=== PATIENT | male | born 1970 | race Asian ===

== ENCOUNTER → 2020-05-08 | Emergency (ER) | payer OTHER ==
[~2020-05-08] VITALS: Ht 170.2 cm; Wt 77.1 kg
[2020-05-08 20:00] VITALS: BP 142/65
== END | disposition home or self-care (01) ==
LOC: ER 18:04
DX: U07.1 COVID-19 (principal)
CPT/HCPCS: 71045; 87635

== ENCOUNTER 2020-05-14 03:46 | Inpatient (IN) | payer OTHER ==
[~2020-05-14] VITALS: Ht 165.1 cm; Wt 72.4 kg
[2020-05-14 08:49] LABS: Basophils # (auto) 0 10 ^3/uL (0-0.2); Basophils % (auto) 0.3 % (0.0-2.0); Eosinophils # (auto) 0 10 ^3/uL (0-0.8); Hematocrit 53.9 % (41.0-53.0); Hemoglobin 17.6 g/dL (13.5-17.5); Lymphocytes # (auto) 1.3 10 ^3/uL (0.4-5.4); Lymphocytes % (auto) 17.9 % (10.0-50.0); Mean Corpuscular Hemoglobin 30.2 pg (28.0-32.0); Mean Corpuscular Hgb Conc. 32.7 g/dL (32.0-36.0); Mean Corpuscular Volume 92.3 fL (80.0-100.0); Monocytes # (auto) 0.4 10 ^3/uL (0-1.3); Monocytes % (auto) 5.5 % (0.0-12.0); Neutrophils # (auto) 5.4 10 ^3/uL (1.6-8.6); Neutrophils % (auto) 76.3 % (37.0-80.0); Nucleated Red Blood Cells % 0.1 %; Platelet Count (auto) 128 10^3/uL (140-450); Red Blood Cells 5.84 10^6/uL (4.5-5.90); Red Cell Distribution Width 13.7 % (11.8-14.3); White Blood Cell 7.1 10^3/uL (4.4-10.8)
[2020-05-14 09:22] LABS: Albumin 3.6 g/dL (3.4-5.0); Calcium 8.5 mg/dL (8.5-10.1); Potassium 3.8 mmol/L (3.5-5.1)
[2020-05-14 09:27] LABS: BUN/Creatinine Ratio 16.1; Bilirubin, Total 0.5 mg/dL (0.2-1.0); Total Protein 8.2 g/dL (6.4-8.2)
[2020-05-14] MEDS ORDERED: SODIUM CHLORIDE 0.9% 1,000 ML IV ONE (09:59)
[2020-05-14] MEDS ORDERED: cefTRIAXone 1GM/50ML D5W 50 ML IV ONE (10:00)
[2020-05-14] MEDS ORDERED: PROMETHAZINE W/CODEINE 5 ML ORAL SYRUP PO ONE (10:00)
[2020-05-14] MEDS ORDERED: DOXYCYCLINE 100MG/250ML 250 ML IV ONE (10:00)
[2020-05-14] MEDS ORDERED: DexAMETHasone SOD PHOS 4 MG/1ML SDV INJ IV ONE (10:00)
[2020-05-14] MEDS ORDERED: ZINC SULFATE 220mg CAP or TAB PO ONE (10:00)
[2020-05-14] MEDS ORDERED: ASCORBIC ACID 500 MG TAB PO ONE (10:00)
[2020-05-14] MEDS ORDERED: hydrOXYchloroQUINE SULFATE 200 MG TAB PO ONE (10:00)
[2020-05-14] MEDS ORDERED: ACETAMINOPHEN 650 mg PER 20 mL UD PO ONE (11:15)
[2020-05-14] MEDS ORDERED: IBUPROFEN 800 MG TAB PO ONE (12:15)
[2020-05-14] MEDS ORDERED: NITROGLYCERIN 0.4 MG SL TAB SL PRN (13:30)
[2020-05-14] MEDS ORDERED: MORPHINE SULF INJ 2 MG/ML SYRINGE 1ML IV PRN (13:30)
[2020-05-14] MEDS ORDERED: ACETAMINOPHEN 500 MG TAB PO PRN ×2 (13:30)
[2020-05-14] MEDS ORDERED: traMADol HCL 50 MG TAB PO PRN (13:30)
[2020-05-14] MEDS ORDERED: PROMETHAZINE HCL 25 MG/ML 1ML IV PRN (13:30)
[2020-05-14] MEDS: SODIUM CHLORIDE 0.9% 1,000 ML IV SCH ×2 (13:46→17:11)
[2020-05-14] MEDS: CLINDAMYCIN 600MG IV 50 ML IV SCH ×2 (14:26→22:44)
[2020-05-14 15:27] VITALS: BP 111/72
[2020-05-14 17:26] VITALS: BP 107/66
[2020-05-14] MEDS ORDERED: BUDESONIDE (INHALATION) 0.5 MG/2 ML NEB NEB ONE (17:30)
[2020-05-14 20:00] VITALS: BP 110/72
--- NOTE | 2020-05-14 20:00 | NUR ---
Opening Shift Note Assumed care of patient, awake and alert. A&Ox4. Patient lying in bed. No S/S of distress/SOB or pain. Safety measures maintained by keeping the bed locked in lowest position, 2 side rails up, personal items and call light within reach. Instructed on POC and to call for assist PRN, will continue to monitor for changes Q1hr and PRN.
[2020-05-14 22:00] VITALS: BP 110/72
[2020-05-14] MEDS ORDERED: BUDESONIDE (INHALATION) 0.5 MG/2 ML NEB NEB SCH (22:00)
[2020-05-14] MEDS: ENOXAPARIN SOD 80 MG/0.8ML SYRINGE SC SCH (22:44)
[2020-05-14] MEDS: ALBUTEROL SULF HFA 90MCG INH 200DOSE IN SCH (23:00)
--- NOTE | 2020-05-14 23:00 | NUR ---
RT AT BEDSIDE TO GIVE VENTOLIN HFA INHALER MEDICATION .
[2020-05-14] MEDS: DexAMETHasone SOD PHOS 10MG/1ML VIAL INJ IV SCH (23:17)
[2020-05-15 04:30] VITALS: BP 111/72
[2020-05-15 05:00] VITALS: BP 102/64
[2020-05-15] MEDS: CLINDAMYCIN 600MG IV 50 ML IV SCH ×2 (05:48→14:00)
[2020-05-15] MEDS: ALBUTEROL SULF HFA 90MCG INH 200DOSE IN SCH ×3 (06:05→22:00)
--- NOTE | 2020-05-15 07:46 | NUR ---
Opening Shift Note Assumed care of patient, awake and alert. A&Ox4. Patient on continuous pulse ox, patient on 2L via NC PRN, SaO2 at 98%. No signs of pain or distress. Safety measures maintained by keeping the bed locked in lowest position, 2 side rails up, personal items and call light within reach. Instructed on POC and to call for assist PRN, will continue to monitor for changes Q1hr and PRN. Addendum: 05/15/20 at 0752 by MARIANA RHODES RN PT ON ROOM AIR
[2020-05-15 08:05] LABS: Basophils # (auto) 0 10 ^3/uL (0-0.2); Basophils % (auto) 0.3 % (0.0-2.0); Eosinophils # (auto) 0 10 ^3/uL (0-0.8); Hematocrit 52.1 % (41.0-53.0); Hemoglobin 17.5 g/dL (13.5-17.5); Lymphocytes # (auto) 0.9 10 ^3/uL (0.4-5.4); Mean Corpuscular Hemoglobin 30.5 pg (28.0-32.0); Mean Corpuscular Hgb Conc. 33.6 g/dL (32.0-36.0); Mean Corpuscular Volume 90.6 fL (80.0-100.0); Monocytes # (auto) 0.4 10 ^3/uL (0-1.3); Monocytes % (auto) 5.9 % (0.0-12.0); Neutrophils # (auto) 4.9 10 ^3/uL (1.6-8.6); Neutrophils % (auto) 79.8 % (37.0-80.0); Nucleated Red Blood Cells % 0.1 %; Platelet Count (auto) 134 10^3/uL (140-450); Red Blood Cells 5.75 10^6/uL (4.5-5.90); Red Cell Distribution Width 13.7 % (11.8-14.3); White Blood Cell 6.2 10^3/uL (4.4-10.8)
[2020-05-15 08:11] LABS: Albumin 3.2 g/dL (3.4-5.0); Calcium 8.6 mg/dL (8.5-10.1); Potassium 4.3 mmol/L (3.5-5.1)
[2020-05-15 08:13] LABS: Bilirubin, Total 0.5 mg/dL (0.2-1.0); Total Protein 7.9 g/dL (6.4-8.2)
[2020-05-15 09:00] VITALS: BP 119/79
[2020-05-15] MEDS: DexAMETHasone SOD PHOS 10MG/1ML VIAL INJ IV SCH ×2 (09:27→22:38)
[2020-05-15] MEDS: ASCORBIC ACID 1,000 MG TAB PO SCH (09:28)
[2020-05-15] MEDS: ZINC SULFATE 220mg CAP or TAB PO SCH (09:28)
[2020-05-15] MEDS: ENOXAPARIN SOD 80 MG/0.8ML SYRINGE SC SCH ×2 (09:28→22:39)
[2020-05-15] MEDS: CHOLECALCIFEROL (VITD3) 1,000UNIT=25mCg TAB PO SCH (09:28)
[2020-05-15] MEDS ORDERED: levoFLOXacin 500MG 100 ML IV SCH (10:00)
[2020-05-15] MEDS ORDERED: POLYETHYLENE GLYCOL 17 GM PWDR PO ONE (10:45)
--- NOTE | 2020-05-15 11:21 | NUR ---
1120 supercharger repair supervisor called to insert iv attempt x2 no success
--- NOTE | 2020-05-15 12:05 | NUR ---
PER MIDLINE NURSE THERE IS NO ONE TO INSERT MIDLINES IN COVID UNIT
[2020-05-15] MEDS: PROMETHAZINE W/CODEINE 5 ML ORAL SYRUP PO PRN ×2 (12:21→22:50)
[2020-05-15 13:00] VITALS: BP 120/76
--- NOTE | 2020-05-15 13:07 | NUR ---
IV insertion IV access obtained, via clean sterile technique by inserting 20 gauge catheter at after attempt(s). IV secured properly. No trauma to site. Patient tolerated well. NOTE:
[2020-05-15 17:00] VITALS: BP 122/74
[2020-05-15] MEDS ORDERED: FUROSEMIDE 40 MG/4 ML VIAL IV ONE (17:15)
--- NOTE | 2020-05-15 18:00 | NUR ---
MS ZAVALETA ROUNDED ON PT INFORMED MD THAT PT HAS BEEN OFF 02 ALL DAY AND WHEN SLEEPING OFF O2 HE SAT 95-99% WHEN AWAKE 85% PER MD PT CAN MOST LIKELY DISCHARGE TOMORROW IF HE CAN STAY ABOVE 90% ROOM AIR FOR 6 HOURS
--- NOTE | 2020-05-15 19:25 | NUR ---
opening note pt is A&Ox4. respirations even and nonlabored on 2Lnc. pt has a nonproductive cough when trying to speak. pt denies pain at this time. No fever noted at this time. no s/s of distress. will continue to monitor.
--- NOTE | 2020-05-15 20:34 | NUR ---
MIDLINE ATTEMPTED TO START MIDLINE, PT REFUSING AT THIS TIME. STATES HE HAS [address] AT THIS TIME. PRIMARY RN NOTIFIED
[2020-05-15 22:00] VITALS: BP 114/71
[2020-05-15] MEDS ORDERED: BUDESONIDE (INHALATION) 0.5 MG/2 ML NEB NEB SCH (22:00)
[2020-05-15] MEDS ORDERED: PULMICORT 180 MCG FLEXHALER INH SCH (22:00)
[2020-05-15] MEDS: hydrOXYchloroQUINE SULFATE 200 MG TAB PO SCH (22:39)
[2020-05-15] MEDS: DOXYCYCLINE 100 MG TAB/CAP PO SCH (22:39)
[2020-05-16 05:00] VITALS: BP 111/73
[2020-05-16 06:55] LABS: Basophils # (auto) 0 10 ^3/uL (0-0.2); Basophils % (auto) 0.1 % (0.0-2.0); Eosinophils # (auto) 0 10 ^3/uL (0-0.8); Hematocrit 51.2 % (41.0-53.0); Hemoglobin 17.2 g/dL (13.5-17.5); Lymphocytes # (auto) 0.9 10 ^3/uL (0.4-5.4); Lymphocytes % (auto) 8.6 % (10.0-50.0); Mean Corpuscular Hemoglobin 30.3 pg (28.0-32.0); Mean Corpuscular Hgb Conc. 33.5 g/dL (32.0-36.0); Mean Corpuscular Volume 90.4 fL (80.0-100.0); Monocytes # (auto) 0.8 10 ^3/uL (0-1.3); Monocytes % (auto) 7.3 % (0.0-12.0); Neutrophils # (auto) 8.7 10 ^3/uL (1.6-8.6); Nucleated Red Blood Cells % 0.2 %; Platelet Count (auto) 167 10^3/uL (140-450); Red Blood Cells 5.66 10^6/uL (4.5-5.90); Red Cell Distribution Width 13.5 % (11.8-14.3); White Blood Cell 10.4 10^3/uL (4.4-10.8)
[2020-05-16 07:13] LABS: Calcium 8.8 mg/dL (8.5-10.1); Magnesium 2.6 mg/dL (1.6-2.6); Potassium 4.2 mmol/L (3.5-5.1)
--- NOTE | 2020-05-16 07:21 | NUR ---
closing note pt is resting in semi fowlers with HOB elevated at 30 degrees. Respirations are even and nonlabored on 2Lnc. No s/s of distress or discomfort at this time. bed is in low locked position, call light within reach. endorsed care to day shift ADELA Brennan.
[2020-05-16 07:22] LABS: Bilirubin, Total 0.5 mg/dL (0.2-1.0); CRP High Sensitivity 2.59 mg/dL (< 0.3); Total Protein 7.7 g/dL (6.4-8.2)
--- NOTE | 2020-05-16 07:30 | NUR ---
Opening Shift Note Assumed care of patient, awake and alert. No S/S of distress/SOB or pain on room air. Instructed on POC and to call for assist PRN, will continue to monitor for changes Q1hr and PRN. Bed in low and locked position, rails up x2, no-slip socks on.
[2020-05-16] MEDS: ALBUTEROL SULF HFA 90MCG INH 200DOSE IN SCH ×3 (08:00→21:48)
[2020-05-16 08:35] LABS: Urine Bacteria FEW /hpf (None Seen); Urine Blood Negative /uL (Negative); Urine Specific Gravity 1.024 (1.001-1.035); Urine WBC <1 /hpf (0 - 3)
[2020-05-16 09:00] VITALS: BP 97/67
[2020-05-16] MEDS: DexAMETHasone SOD PHOS 10MG/1ML VIAL INJ IV SCH (09:43)
[2020-05-16] MEDS: ASCORBIC ACID 1,000 MG TAB PO SCH (09:44)
[2020-05-16] MEDS: FUROSEMIDE 40 MG/4 ML VIAL IV SCH ×2 (09:44→09:53)
[2020-05-16] MEDS: DOXYCYCLINE 100 MG TAB/CAP PO SCH ×2 (09:44→21:48)
[2020-05-16] MEDS: ENOXAPARIN SOD 80 MG/0.8ML SYRINGE SC SCH ×2 (09:44→21:48)
[2020-05-16] MEDS: CHOLECALCIFEROL (VITD3) 1,000UNIT=25mCg TAB PO SCH (09:44)
[2020-05-16] MEDS: ZINC SULFATE 220mg CAP or TAB PO SCH (09:44)
[2020-05-16] MEDS: hydrOXYchloroQUINE SULFATE 200 MG TAB PO SCH (09:45)
--- NOTE | 2020-05-16 09:50 | NUR ---
URINE SPECIMEN COLLECTED
[2020-05-16] MEDS ORDERED: BUDESONIDE (INHALATION) 180 MCG IH IN SCH (10:00)
--- NOTE | 2020-05-16 11:12 | NUR ---
DR MEREDITH AT BEDSIDE
[2020-05-16 13:00] VITALS: BP 107/72
[2020-05-16 13:55] VITALS: BP 107/72
--- NOTE | 2020-05-16 14:54 | NUR ---
PRESCRIPTIONS FAXED TO [facility] PATIENT REQUESTING TO GET THEM FILLED HERE, ACKNOWLEDGES POSSIBILITY OF HIGH COPAY AND AGREES.
--- NOTE | 2020-05-16 17:00 | NUR ---
PRESCRIPTIONS DELIVERED TO BEDSIDE
--- NOTE | 2020-05-16 17:22 | NUR ---
05/16/2020 1420 Contacted [facility] at [phone] and requested continued authorization for hospital stay. Spoke with Radha GAONA and informed that the patient will be discharged home today. Per Radha entire stay is authorized, with auth [id number]
--- NOTE | 2020-05-16 17:23 | NUR ---
Called [facility] and spoke with Bipin requesting for authorization for home o2 at 2l by n/c continous to keep sat greater than 94%, stated to him that he needs to have o2 at home and to be brought to the hospital, he spoke with Radha GAONA who stated she will work on it, gave her the room number 247b and the phone to the floor [phone], ext [phone]
--- NOTE | 2020-05-16 18:34 | NUR ---
DISCHARGE HOLD AWAITING HOME O2 TO BE DELIVERED.
--- NOTE | 2020-05-16 18:40 | NUR ---
OK FOR NO IV SPOKE TO DR MEREDITH SINCE DISCHARGE IS HELD FOR TONIGHT AND PATIENT HAS IV MEDS DUE THIS EVENING, PER MD CHANGE TO ORAL ADMINISTRATION AND NO IV IS OK.
[2020-05-16] MEDS: PROMETHAZINE W/CODEINE 5 ML ORAL SYRUP PO PRN (20:58)
[2020-05-16] MEDS: DexAMETHasone 4 MG TAB PO SCH (21:48)
[2020-05-16] MEDS: BUDESONIDE (INHALATION) 180 MCG IH IN SCH (21:48)
[2020-05-16 22:00] VITALS: BP 108/68
[2020-05-16] MEDS ORDERED: DexAMETHasone SOD PHOS 10MG/1ML VIAL INJ PO SCH (22:00)
[2020-05-17 05:00] VITALS: BP 112/72
[2020-05-17] MEDS: ALBUTEROL SULF HFA 90MCG INH 200DOSE IN SCH ×3 (06:06→23:43)
[2020-05-17 08:00] VITALS: BP 112/69
--- NOTE | 2020-05-17 09:05 | NUR ---
Called [facility] [phone] Spoke with business planning analyst Vanda who stated the ed case manager were not in yet, per Vanda they received the request and the order had been placed for the o2 but there was no eta, stated she will let the field nurse case manager know when she arrives
[2020-05-17] MEDS: hydrOXYchloroQUINE SULFATE 200 MG TAB PO SCH (09:34)
[2020-05-17] MEDS: ZINC SULFATE 220mg CAP or TAB PO SCH (09:35)
[2020-05-17] MEDS: DOXYCYCLINE 100 MG TAB/CAP PO SCH ×2 (09:35→21:10)
[2020-05-17] MEDS: ASCORBIC ACID 1,000 MG TAB PO SCH (09:35)
[2020-05-17] MEDS: DexAMETHasone 4 MG TAB PO SCH (09:36)
[2020-05-17] MEDS: CHOLECALCIFEROL (VITD3) 1,000UNIT=25mCg TAB PO SCH (09:36)
[2020-05-17] MEDS: ENOXAPARIN SOD 80 MG/0.8ML SYRINGE SC SCH ×2 (09:37→21:10)
[2020-05-17] MEDS: FUROSEMIDE 40 MG TAB PO SCH (09:38)
[2020-05-17] MEDS: BUDESONIDE (INHALATION) 180 MCG IH IN SCH ×2 (10:00→22:00)
--- NOTE | 2020-05-17 11:50 | NUR ---
Called [facility] [phone] spoke with data analyst report writer Que and stated they have no ETA on the O2, but he is going to talk with the supervisor fur dressing Cate and see why the O2 has not been delivered, gave him my number so he could call me back [phone]
[2020-05-17 12:00] VITALS: BP 107/66
--- NOTE | 2020-05-17 12:08 | NUR ---
DOCTOR MEREDITH AT BEDSIDE DISCUSSING POC WITH PATIENT. PATIENT VERBALIZES UNDERSTANDING AND AGREES WITH POC. DOCTOR MEREDITH INFORMED PATIENT CURRENTLY ON 6L OXYMIZER SATURATION 95%.
--- NOTE | 2020-05-17 14:47 | NUR ---
Nutrition Assessment Notes Please refer to link for full assessment notes. Est Energy needs: 8184-1042 kcals (23-25 kcal/kgBW) Est Protein needs: 58-72 gms/day (0.8-1.0 gm/kgBW) Will continue to monitor and reassess prn. Addendum: 05/17/20 at [address] Amended: Links added.
--- NOTE | 2020-05-17 15:05 | NUR ---
Spoke with Dr Morrison and stated the discharge is being held, faxing information to [facility] [phone] for authorization for in patient stay and sending post stabilization form, per Dr Morrison patient is stable for transfer
[2020-05-17 17:00] VITALS: BP 107/67
--- NOTE | 2020-05-17 19:55 | NUR ---
Opening Shift Note Assumed care of patient, awake and alert. No S/S of distress/SOB or pain. Instructed on POC and to call for assist PRN, will continue to monitor for changes Q1hr and PRN.
[2020-05-17] MEDS: TEMAZEPAM 15 MG CAP PO PRN (21:10)
[2020-05-17 22:00] VITALS: BP 129/77
[2020-05-18 00:51] VITALS: BP 129/77
[2020-05-18 05:00] VITALS: BP 107/75
[2020-05-18 06:10] LABS: Basophils # (auto) 0 10 ^3/uL (0-0.2); Basophils % (auto) 0.1 % (0.0-2.0); Eosinophils # (auto) 0 10 ^3/uL (0-0.8); Hematocrit 52.5 % (41.0-53.0); Hemoglobin 17.2 g/dL (13.5-17.5); Lymphocytes # (auto) 0.7 10 ^3/uL (0.4-5.4); Lymphocytes % (auto) 4.6 % (10.0-50.0); Mean Corpuscular Hemoglobin 29.9 pg (28.0-32.0); Mean Corpuscular Hgb Conc. 32.8 g/dL (32.0-36.0); Monocytes # (auto) 1.1 10 ^3/uL (0-1.3); Monocytes % (auto) 7.8 % (0.0-12.0); Neutrophils # (auto) 12.7 10 ^3/uL (1.6-8.6); Neutrophils % (auto) 87.5 % (37.0-80.0); Nucleated Red Blood Cells % 0.2 %; Platelet Count (auto) 173 10^3/uL (140-450); Red Blood Cells 5.77 10^6/uL (4.5-5.90); Red Cell Distribution Width 13.2 % (11.8-14.3); White Blood Cell 14.6 10^3/uL (4.4-10.8)
[2020-05-18 06:28] LABS: Albumin 2.8 g/dL (3.4-5.0); Calcium 8.7 mg/dL (8.5-10.1)
--- NOTE | 2020-05-18 06:30 | NUR ---
EKG EKG done for morning order
[2020-05-18 06:32] LABS: BUN/Creatinine Ratio 32.5; Bilirubin, Total 0.8 mg/dL (0.2-1.0); Total Protein 7.8 g/dL (6.4-8.2)
--- NOTE | 2020-05-18 07:02 | NUR ---
Closing Note Patient status not change,endorsed care to dayshift nurse.
[2020-05-18] MEDS: ALBUTEROL SULF HFA 90MCG INH 200DOSE IN SCH ×3 (07:53→22:30)
[2020-05-18] MEDS: BUDESONIDE (INHALATION) 180 MCG IH IN SCH ×2 (07:53→22:30)
[2020-05-18 08:00] VITALS: BP 102/72
[2020-05-18] MEDS: ENOXAPARIN SOD 80 MG/0.8ML SYRINGE SC SCH ×2 (08:46→21:56)
[2020-05-18] MEDS: CHOLECALCIFEROL (VITD3) 1,000UNIT=25mCg TAB PO SCH (08:46)
[2020-05-18] MEDS: ASCORBIC ACID 1,000 MG TAB PO SCH (08:47)
[2020-05-18] MEDS: DOXYCYCLINE 100 MG TAB/CAP PO SCH ×2 (08:47→21:56)
[2020-05-18] MEDS: hydrOXYchloroQUINE SULFATE 200 MG TAB PO SCH (08:47)
[2020-05-18] MEDS: ZINC SULFATE 220mg CAP or TAB PO SCH (08:48)
[2020-05-18] MEDS: DexAMETHasone 4 MG TAB PO SCH (08:49)
[2020-05-18] MEDS: FUROSEMIDE 40 MG TAB PO SCH (09:03)
--- NOTE | 2020-05-18 11:57 | NUR ---
assessment Patient is a 49 year old male who is alert and oriented. Patient is covid positive. Patients is positive also and in room 233. Prior to admission patient lived home with family and was independent. Patients PCP is Dr Delaney at the [facility]. Patient will need home [address] Per Suki patient may need home health on discharge. I informed Suki patients post discharge needs to be determined prior to discharge. I will continue to monitor and follow up as appropriate. Suki verbalized understanding and agreed to discharge plan home. Addendum: 05/18/20 at 1201 by Belkis ESQUIVEL Amended: Links added.
[2020-05-18 12:00] VITALS: BP 110/74
[2020-05-18] MEDS ORDERED: diphenhdrAMINE HCL 50 MG/1 ML VL IV ONE (14:30)
[2020-05-18] MEDS ORDERED: ACETAMINOPHEN 650 mg PER 20 mL UD PO ONE (14:30)
[2020-05-18] MEDS ORDERED: TOCILIZUMAB 400 MG in SODIUM CHL 0.9% 80 ML IV ONE (14:30)
[2020-05-18] MEDS ORDERED: methylPREDNISolone SOD SUCC 40 MG/ML VL IV ONE (14:30)
--- NOTE | 2020-05-18 14:36 | NUR ---
Faxed transfer request to [facility] [phone]
--- NOTE | 2020-05-18 16:20 | NUR ---
05/18/20 1620 Called [facility] [phone] spoke with Zeeshan epic kaleidoscope analyst stated they were not able to transfer any patients today and gave an authorization for in patient stay 05/18/20 #[id number]
[2020-05-18 17:00] VITALS: BP 127/79
--- NOTE | 2020-05-18 19:20 | NUR ---
Opening Shift Note Received report from erich Booth RN. Assumed care of patient, awake and alert. No S/S of distress/SOB or pain. On 10L Oxymizer saturating at 96%. Instructed on POC and to call for assist PRN, will continue to monitor for changes Q1hr and PRN.
--- NOTE | 2020-05-18 20:30 | NUR ---
IV insertion IV access obtained, via clean sterile technique by inserting 22 gauge catheter at left hand after first attempt. IV secured properly. No trauma to site. Patient tolerated well.
[2020-05-18] MEDS: diphenhdrAMINE HCL 50 MG/1 ML VL IV SCH (20:53)
[2020-05-18] MEDS: methylPREDNISolone SOD SUCC 40 MG/ML VL IV SCH (20:54)
[2020-05-18] MEDS: ACETAMINOPHEN 650 mg PER 20 mL UD PO SCH (20:55)
[2020-05-18] MEDS: TOCILIZUMAB 400 MG in SODIUM CHL 0.9% 80 ML IV SCH (21:34)
[2020-05-18 22:00] VITALS: BP 115/72
[2020-05-18] MEDS ORDERED: PATIENTS OWN MEDICATION (ACTEMRA 400 MG) IV SCH (22:00)
[2020-05-19 06:03] VITALS: BP 114/80
[2020-05-19] MEDS: BUDESONIDE (INHALATION) 180 MCG IH IN SCH ×2 (07:24→22:00)
[2020-05-19] MEDS: ALBUTEROL SULF HFA 90MCG INH 200DOSE IN SCH ×3 (07:24→22:00)
[2020-05-19] MEDS: ACETAMINOPHEN 650 mg PER 20 mL UD PO SCH (09:40)
[2020-05-19] MEDS: diphenhdrAMINE HCL 50 MG/1 ML VL IV SCH (09:40)
[2020-05-19] MEDS: methylPREDNISolone SOD SUCC 40 MG/ML VL IV SCH (09:40)
[2020-05-19] MEDS: DOXYCYCLINE 100 MG TAB/CAP PO SCH ×2 (09:41→21:37)
[2020-05-19] MEDS: ASCORBIC ACID 1,000 MG TAB PO SCH (09:41)
[2020-05-19] MEDS: ENOXAPARIN SOD 80 MG/0.8ML SYRINGE SC SCH ×2 (09:41→21:37)
[2020-05-19] MEDS: DexAMETHasone 4 MG TAB PO SCH (09:41)
[2020-05-19] MEDS: CHOLECALCIFEROL (VITD3) 1,000UNIT=25mCg TAB PO SCH (09:41)
[2020-05-19] MEDS: ZINC SULFATE 220mg CAP or TAB PO SCH (09:41)
[2020-05-19] MEDS: FUROSEMIDE 40 MG TAB PO SCH (09:42)
[2020-05-19] MEDS: hydrOXYchloroQUINE SULFATE 200 MG TAB PO SCH (09:42)
[2020-05-19] MEDS: TOCILIZUMAB 400 MG in SODIUM CHL 0.9% 80 ML IV SCH (10:02)
[2020-05-19 12:30] VITALS: BP 131/74
[2020-05-19] MEDS ORDERED: FUROSEMIDE 40 MG/4 ML VIAL IV ONE (13:45)
[2020-05-19] MEDS ORDERED: POTASSIUM CHL 10 Meq TABLET PO ONE (13:45)
--- NOTE | 2020-05-19 13:48 | NUR ---
ROUNDING MD BONILLA AT BEDSIDE. PER PATIENT HE WOULD LIKE TO GO HOME. MD GAVE ORDERS FOR PATIENT TO BE TITRATED TO NASAL CANNULA AT 6L/MIN. PT TITRATED TO 6L WITH SPO2 OF 91% MD AWARE. PER MD SHE MAY D/C PATIENT IF HE AGREES TO THE PLAN
--- NOTE | 2020-05-19 14:53 | NUR ---
FELICITA BONILLA RE: PENDING D/C
[2020-05-19 17:14] VITALS: BP 114/69
--- NOTE | 2020-05-19 19:30 | NUR ---
Opening Shift Note Assumed care of patient, awake and alert. Patient on Oxymizer with reports of SOB after recently returning to bed from toilet for which he removed oxygen. Patient educated on importance/indication for maintaining oxygen, patient verbalized understanding and in agreement. Patient replaced onto oxygen and extension tubing provided. O2 saturation above 90%. Fall and safety precautions in place. Call light within reach and able to use. Instructed on POC and to call for assist PRN, patient verbalized understanding and in agreement. Will continue to monitor for changes Q1hr and PRN.
[2020-05-19] MEDS: TEMAZEPAM 15 MG CAP PO PRN (21:37)
[2020-05-19 22:00] VITALS: BP 112/73
[2020-05-20] VITALS (11 sets, daily range): BP systolic 95–114; BP diastolic 61–78
--- NOTE | 2020-05-20 05:10 | NUR ---
O2 saturation Patient replaced on oxymizer 5 liters due to lower oxygen saturation. 02 rechecked at this time 90%.
--- NOTE | 2020-05-20 08:00 | NUR ---
PATIENTS MORNING OXYGEN SATURATIONS AT 0800AM AT 89% PATIENT ON 9L OXYMIZER. PLACED ON 11L OXYMIZER SATURATIONS AT 93%. TOLERATING WELL.
[2020-05-20] MEDS: BUDESONIDE (INHALATION) 180 MCG IH IN SCH ×2 (09:26→21:46)
[2020-05-20] MEDS: ALBUTEROL SULF HFA 90MCG INH 200DOSE IN SCH ×3 (09:26→21:45)
[2020-05-20] MEDS: hydrOXYchloroQUINE SULFATE 200 MG TAB PO SCH (09:32)
[2020-05-20] MEDS: DexAMETHasone 4 MG TAB PO SCH (09:32)
[2020-05-20] MEDS: ZINC SULFATE 220mg CAP or TAB PO SCH (09:32)
[2020-05-20] MEDS: FUROSEMIDE 40 MG TAB PO SCH (09:32)
[2020-05-20] MEDS: ENOXAPARIN SOD 80 MG/0.8ML SYRINGE SC SCH ×2 (09:33→21:45)
[2020-05-20] MEDS: ASCORBIC ACID 1,000 MG TAB PO SCH (09:33)
[2020-05-20] MEDS: DOXYCYCLINE 100 MG TAB/CAP PO SCH ×2 (09:33→21:45)
[2020-05-20] MEDS: CHOLECALCIFEROL (VITD3) 1,000UNIT=25mCg TAB PO SCH (09:33)
[2020-05-20 11:06] LABS: Basophils # (auto) 0 10 ^3/uL (0-0.2); Basophils % (auto) 0.5 % (0.0-2.0); Eosinophils # (auto) 0 10 ^3/uL (0-0.8); Eosinophils % (auto) 0.1 % (0.0-7.0); Hematocrit 53.9 % (41.0-53.0); Hemoglobin 17.7 g/dL (13.5-17.5); Lymphocytes # (auto) 0.8 10 ^3/uL (0.4-5.4); Lymphocytes % (auto) 8.3 % (10.0-50.0); Mean Corpuscular Hgb Conc. 32.9 g/dL (32.0-36.0); Mean Corpuscular Volume 91.3 fL (80.0-100.0); Monocytes % (auto) 9.9 % (0.0-12.0); Neutrophils # (auto) 8.3 10 ^3/uL (1.6-8.6); Neutrophils % (auto) 81.2 % (37.0-80.0); Platelet Count (auto) 292 10^3/uL (140-450); Red Cell Distribution Width 13.1 % (11.8-14.3); White Blood Cell 10.2 10^3/uL (4.4-10.8)
--- NOTE | 2020-05-20 11:31 | NUR ---
Jason PARIS AT BEDSIDE. INFORMED OF PATIENTS INCREASING OXYGEN DEMAND. PATIENT NOW ON 12L OXYMIZER. Jason TO ENTER NEW ORDERS.
--- NOTE | 2020-05-20 12:11 | NUR ---
PER PHARMACY THEY WILL ENTER REMDESEVIR ORDER.
[2020-05-20 15:07] LABS: INR 1.01 (0.9-1.15)
[2020-05-20 15:09] LABS: BUN/Creatinine Ratio 31.1; Calcium 9.6 mg/dL (8.5-10.1); Potassium 4.1 mmol/L (3.5-5.1)
[2020-05-20 15:19] LABS: Bilirubin, Total 0.7 mg/dL (0.2-1.0); Total Protein 7.7 g/dL (6.4-8.2)
--- NOTE | 2020-05-20 16:41 | NUR ---
CALLED [facility] TO GIVE INFORMATION FOR COVALESCENT PLASMA.
[2020-05-20] MEDS ORDERED: REMDESIVIR 200 MG in NS 210ml LOADING DOSE ADULT IV ONE (20:00)
--- NOTE | 2020-05-20 20:22 | NUR ---
Remdesivir Infusion Started Remdesivir infusion started at this time. Remdesivir infusing to IV 22g left hand at 4.17ml/min. Vital signs are the following: BP: 109/76, RR: 18, HR: 70, SPO2: 94% on 8L Oxymizer, and TEMP: 97.5. Consents were obtained by vickie CHAPMAN (see hardchart). No questions/concerns from patient at this time. Addendum: 05/20/20 at 2300 by ELIANA ERAZO RN RN Incorrect vial signs for this time. Correct vital signs for this time: BP: 107/77, HR: 73, RR: 18, SPO2: 95% via 8L Oxymizer, and TEMP: 97.7.
--- NOTE | 2020-05-20 20:37 | NUR ---
Vital Signs BP: 109/76, RR: 18, HR: 70, SPO2: 94% via 8L Oxymizer, and TEMP: 97.5. Patient denies nausea or shortness of breath at this time. No diaphoreses or shivering noted at this time. No sign/symptoms of distress noted or verbalized at this time. Will continue care.
--- NOTE | 2020-05-20 21:40 | NUR ---
Remdesivir Infusion Complete Remdesivir infusion completed. Patient denies nausea or shortness of breath at this time. No diaphoresis or shivering noted at this time. Vital signs are the following: BP: 109/74, HR: 65, RR: 18, SPO2: 91% on 8L Oxymizer, TEMP: 97.8. No sign/symptoms of distress noted or verbalized at this time. Will continue care.
[2020-05-21 05:00] VITALS: BP 105/69
[2020-05-21 06:04] LABS: Albumin 2.9 g/dL (3.4-5.0); BUN/Creatinine Ratio 29.6; Bilirubin, Total 0.7 mg/dL (0.2-1.0); Calcium 8.4 mg/dL (8.5-10.1); Total Protein 7.1 g/dL (6.4-8.2)
[2020-05-21] MEDS: ALBUTEROL SULF HFA 90MCG INH 200DOSE IN SCH ×2 (06:51→14:16)
[2020-05-21] MEDS: BUDESONIDE (INHALATION) 180 MCG IH IN SCH (06:51)
[2020-05-21 08:51] VITALS: BP 99/64
[2020-05-21] MEDS: ZINC SULFATE 220mg CAP or TAB PO SCH (10:52)
[2020-05-21] MEDS: DexAMETHasone 4 MG TAB PO SCH (10:52)
[2020-05-21] MEDS: DOXYCYCLINE 100 MG TAB/CAP PO SCH ×2 (10:53→22:17)
[2020-05-21] MEDS: ASCORBIC ACID 1,000 MG TAB PO SCH (10:53)
[2020-05-21] MEDS: FUROSEMIDE 40 MG TAB PO SCH (10:53)
[2020-05-21] MEDS: CHOLECALCIFEROL (VITD3) 1,000UNIT=25mCg TAB PO SCH (10:57)
[2020-05-21] MEDS: ENOXAPARIN SOD 80 MG/0.8ML SYRINGE SC SCH ×2 (10:57→22:17)
--- NOTE | 2020-05-21 11:01 | NUR ---
CARE ENDORSED TO ADELA IRWIN.
--- NOTE | 2020-05-21 11:02 | NUR ---
RECEIVED PATIENT FROM ANI, PATIENT ALERT AND ORIENTED SITTING UP IN BED, PATIENT HAS BEEN SEEN MY DR HAMMONDS TODAY. PATIENT HAS NO S/S OF DISTRESS NOTED AT THIS TIME. PERSONNEL MANAGER A BEDSIDE TO ASSIST.
[2020-05-21 12:27] VITALS: BP 97/62
--- NOTE | 2020-05-21 14:11 | NUR ---
Nutrition Followup Note Wt 73.7kg Pt is covid positive in the covid wing. Pt is on a Regular Diet with fair intake aeb pt with an avg of 56% po intake x 3 days. If pt po intake continues to be fair or decreased consider adding oral supplements. Est Energy needs: 1993-1060 kcals (23-25 kcal/kgBW) Est Protein needs: 58-72 gms/day (0.8-1.0 gm/kgBW) Will continue to monitor and reassess prn. Labs: BUN 32H, Ca 8.4L, Alb 2.9L BM: Pt with 2 BMs on 05/18 per RN note Skin: BS 21 low risk, full details in home day care provider note PES: Altered nutrition related lab values r/t current medical condition aeb hyperglycemia, mod hypoalbuminemia Comments: Will continue to monitor PO status, skin status, pertinent labs and weight trends. Will f/u in 3-5 days. 1) Continue to closely monitor pt PO intake to meet at least 75% of meals 2) Continue current plan of care Expected Outcomes/Goals: Pt appetite to improve Pt labs to improve
[2020-05-21 17:24] VITALS: BP 90/65
[2020-05-21] MEDS: REMDESIVIR 100mg in NS 230ml DAILYx4DAYS (NO VENT) IV SCH (17:34)
[2020-05-21] MEDS ORDERED: REMDESIVIR 100mg in NS 230ml DAILYx4DAYS (NO VENT) IV SCH (18:00)
[2020-05-21 23:18] VITALS: BP 110/64
[2020-05-21] MEDS: TEMAZEPAM 15 MG CAP PO PRN (23:55)
[2020-05-22] MEDS: ALBUTEROL SULF HFA 90MCG INH 200DOSE IN SCH ×4 (01:37→22:20)
[2020-05-22] MEDS: BUDESONIDE (INHALATION) 180 MCG IH IN SCH ×3 (01:37→22:20)
[2020-05-22 05:33] VITALS: BP 106/69
[2020-05-22 07:35] LABS: Potassium 4.1 mmol/L (3.5-5.1)
[2020-05-22 07:42] LABS: Bilirubin, Total 0.6 mg/dL (0.2-1.0); Calcium 8.8 mg/dL (8.5-10.1); Total Protein 7.1 g/dL (6.4-8.2)
[2020-05-22 09:00] VITALS: BP 94/60
[2020-05-22] MEDS: ENOXAPARIN SOD 80 MG/0.8ML SYRINGE SC SCH ×2 (09:00→21:55)
[2020-05-22] MEDS: CHOLECALCIFEROL (VITD3) 1,000UNIT=25mCg TAB PO SCH (09:00)
[2020-05-22] MEDS: DexAMETHasone 4 MG TAB PO SCH (09:01)
[2020-05-22] MEDS: ASCORBIC ACID 1,000 MG TAB PO SCH (09:01)
[2020-05-22] MEDS: DOXYCYCLINE 100 MG TAB/CAP PO SCH ×2 (09:03→21:55)
[2020-05-22] MEDS: ZINC SULFATE 220mg CAP or TAB PO SCH (09:03)
[2020-05-22] MEDS: FUROSEMIDE 40 MG TAB PO SCH (10:00)
[2020-05-22 13:00] VITALS: BP 98/65
[2020-05-22 17:00] VITALS: BP 108/77
[2020-05-22] MEDS: REMDESIVIR 100mg in NS 230ml DAILYx4DAYS (NO VENT) IV SCH (17:09)
--- NOTE | 2020-05-22 17:09 | NUR ---
PER-REMDESVIR V/S TEMP 97.5,HR 71, RR 20, B/P 111/74 O2 SAT 92%. Addendum: 05/22/20 at 1722 by MARIIA FERRARO RN RN REMDESIVIR
--- NOTE | 2020-05-22 17:26 | NUR ---
15 MINUTE REMDESIVIR V/S TEMP 98.2,HR 71, RR 20, B/P 112/71 O2 SAT 92%. PATIENT VS WNL NO S/S OF DISTRESS NOTED
--- NOTE | 2020-05-22 18:15 | NUR ---
REMDESIVIR COMPLETE V/S TEMP 97.6,HR 848, RR 20, B/P 115/70 O2 SAT 91%. VS WNL NO S/S OF DISTRESS NOTED. Addendum: 05/22/20 at 1929 by MARIIA FERRARO RN RN HEART RATE 84
--- NOTE | 2020-05-22 19:28 | NUR ---
POST REMDESIVIR V/S TEMP 97.9,HR 70, RR 20, B/P 120/60 O2 SAT 91%. VS WNL NO S/S OF DISTRESS NOTED.
--- NOTE | 2020-05-22 19:34 | NUR ---
Opening Shift Note Received report and assumed care of patient. Patient is awake and alert. No signs or symptoms of distress noted. Instructed patient on plan of care and to call for assistance as needed. Will continue to monitor.
[2020-05-22] MEDS: PROMETHAZINE W/CODEINE 5 ML ORAL SYRUP PO PRN (21:55)
[2020-05-22 22:00] VITALS: BP 98/68
[2020-05-23] MEDS: ALBUTEROL SULF HFA 90MCG INH 200DOSE IN SCH ×3 (00:15→16:15)
[2020-05-23] MEDS: TEMAZEPAM 15 MG CAP PO PRN (01:20)
[2020-05-23 05:30] VITALS: BP 102/66
[2020-05-23] MEDS: BUDESONIDE (INHALATION) 180 MCG IH IN SCH (07:24)
--- NOTE | 2020-05-23 07:42 | NUR ---
OPENING SHIFT NOTE Assumed care of patient. PT is awake and alert. No S/S of distress or pain. PT is on 8L O2 via Oxymizer. Instructed on POC and to call for assist PRN. Fall precautions in place per safety protocol. Will continue to monitor for changes Q1hr and PRN.
[2020-05-23 09:00] VITALS: BP 95/48
[2020-05-23] MEDS: DOXYCYCLINE 100 MG TAB/CAP PO SCH ×2 (09:14→22:56)
[2020-05-23] MEDS: ZINC SULFATE 220mg CAP or TAB PO SCH (09:14)
[2020-05-23] MEDS: DexAMETHasone 4 MG TAB PO SCH (09:15)
[2020-05-23] MEDS: FUROSEMIDE 40 MG TAB PO SCH (09:15)
[2020-05-23] MEDS: CHOLECALCIFEROL (VITD3) 1,000UNIT=25mCg TAB PO SCH (09:16)
[2020-05-23] MEDS: ASCORBIC ACID 1,000 MG TAB PO SCH (09:16)
[2020-05-23] MEDS: ENOXAPARIN SOD 80 MG/0.8ML SYRINGE SC SCH ×2 (09:16→22:56)
[2020-05-23 09:26] LABS: Albumin 3.1 g/dL (3.4-5.0); BUN/Creatinine Ratio 27.2; Bilirubin, Total 0.9 mg/dL (0.2-1.0); CRP High Sensitivity 0.25 mg/dL (< 0.3); Calcium 8.9 mg/dL (8.5-10.1)
[2020-05-23 13:00] VITALS: BP 97/57
[2020-05-23] MEDS ORDERED: guaiFENesin 200 MG/10 ML UD PO PRN (13:30)
[2020-05-23] MEDS ORDERED: ACETAMINOPHEN 500 MG TAB PO PRN (13:30)
[2020-05-23] MEDS ORDERED: ACETYLCYSTEINE 10 %(100MG/ML) SOL 4ML NEB SCH (14:00)
[2020-05-23] MEDS ORDERED: ALBUTEROL SULF 2.5 MG/0.5ML(0.5%) NEB SOLN NEB SCH (14:00)
--- NOTE | 2020-05-23 16:03 | NUR ---
SPOKE TO PT REGARDING PLASMA ADMINISTRATION. PT REFUSED. WILL NOTIFY [employer].
[2020-05-23 16:47] VITALS: BP 110/70
[2020-05-23] MEDS: REMDESIVIR 100mg in NS 230ml DAILYx4DAYS (NO VENT) IV SCH (17:48)
--- NOTE | 2020-05-23 18:03 | NUR ---
PER-REMDESIVIR V/S TEMP 97.7,HR 71, RR 20, B/P 100/71 O2 SAT 92%.
--- NOTE | 2020-05-23 18:20 | NUR ---
15 MINUTE INTRA-REMDESIVIR V/S TEMP 98.1,HR 74, RR 18, B/P 101/73 O2 SAT 88%.
[2020-05-23 19:58] VITALS: BP 110/70
--- NOTE | 2020-05-23 20:00 | NUR ---
Opening Shift Note Assumed care of patient. Awake, alert and oriented x4. No S/S of distress/SOB or pain. Patient is sitting up in bed, nasal cannula in place set at 4L with even and unlabored respirations. Instructed on POC and to call for assist PRN. Bed locked, in lowest position, call light within reach, side rails up x2. Will continue to monitor for changes Q1hr and PRN.
--- NOTE | 2020-05-23 20:20 | NUR ---
Remdesivir infusion complete BP 98/62, P 76, R 16, O2 91%, Temp 97.6
[2020-05-23 22:00] VITALS: BP 103/64
[2020-05-23] MEDS ORDERED: ACETYLCYSTEINE ORAL for CIN 20%(200MG/ML) 4ML PO SCH (22:00)
[2020-05-23] MEDS ORDERED: PATIENTS OWN MEDICATION (PULMICORT 360 MCG) IN SCH (22:00)
[2020-05-23] MEDS ORDERED: BUDESONIDE (INHALATION) 0.5 MG/2 ML NEB NEB SCH (22:00)
[2020-05-24] MEDS: BUDESONIDE (INHALATION) 180 MCG IH IN SCH ×2 (00:15→09:05)
[2020-05-24 05:00] VITALS: BP 100/57
--- NOTE | 2020-05-24 07:44 | NUR ---
OPENING SHIFT NOTE Resumed care of patient. PT is awake and alert. No S/S of distress or pain. PT is on 4L O2 via NC with saturations between 90 and 92% at rest. Instructed on POC and to call for assist PRN. Fall precautions in place per safety protocol. Will continue to monitor for changes Q1hr and PRN.
[2020-05-24 08:12] VITALS: BP 95/65
[2020-05-24] MEDS: ALBUTEROL SULF HFA 90MCG INH 200DOSE IN SCH ×2 (09:05→14:56)
[2020-05-24] MEDS: ZINC SULFATE 220mg CAP or TAB PO SCH (09:40)
[2020-05-24] MEDS: DOXYCYCLINE 100 MG TAB/CAP PO SCH (09:40)
[2020-05-24] MEDS: FUROSEMIDE 40 MG TAB PO SCH (09:41)
[2020-05-24] MEDS: ASCORBIC ACID 1,000 MG TAB PO SCH (09:41)
[2020-05-24] MEDS: ENOXAPARIN SOD 80 MG/0.8ML SYRINGE SC SCH (09:41)
[2020-05-24] MEDS: DexAMETHasone 4 MG TAB PO SCH (09:41)
[2020-05-24] MEDS: CHOLECALCIFEROL (VITD3) 1,000UNIT=25mCg TAB PO SCH (09:41)
--- NOTE | 2020-05-24 10:40 | NUR ---
05/24/20 1009 Faxed doctor order to [facility] requesting home PT for deconditioning and home visiting nurse for vitals check
--- NOTE | 2020-05-24 11:26 | NUR ---
DR MEREDITH IN TO SEE PT. SPOKE TO PT REGARDING DC. EDUCATED PT ON RISK OF RESPIRATORY FAILURE. PT ACKNOWLEDGED AND WISHES TO GO HOME. PT WILL DC ON HOME O2 AT 4L VIA OXYMIZER. INSTRUCTED TO DC PT AFTER REMDESIVIR ADMINISTRATION. WILL CARRY OUT.
[2020-05-24 12:27] VITALS: BP 99/60
[2020-05-24] MEDS ORDERED: BUDE1AER5 IN (13:28)
[2020-05-24] MEDS ORDERED: ALBUAER3 IN (13:28)
[2020-05-24] MEDS ORDERED: APIX5TAB PO (13:28)
[2020-05-24] MEDS ORDERED: DEXA6TAB PO (13:28)
[2020-05-24] MEDS ORDERED: GUAI-41 PO (13:28)
--- NOTE | 2020-05-24 13:38 | NUR ---
REMDESIVIR delivered to unit. will administer at this time per md instructions.
--- NOTE | 2020-05-24 14:16 | NUR ---
PER-REMDESIVIR V/S TEMP 98.3,HR 79, RR 20, B/P 102/60 O2 SAT 91%.
--- NOTE | 2020-05-24 14:17 | NUR ---
15 MINUTE INTRA-REMDESIVIR V/S TEMP 98.0,HR 84, RR 18, B/P 108/65 O2 SAT 93%.
[2020-05-24] MEDS: REMDESIVIR 100mg in NS 230ml DAILYx4DAYS (NO VENT) IV SCH (14:18)
--- NOTE | 2020-05-24 15:04 | NUR ---
POST REMDESIVIR V/S: T97.5, HR89, R18, 63IZQ57%, BP: 110/66
--- NOTE | 2020-05-24 16:01 | NUR ---
ASKED PT IF HE WAS READY TO SIGN DC PAPERS. STATED WAS ALSO BEING DC'ED. STATED THEY ONLY HAD ONE RIDE. STATED HE WOULD WAIT FOR TO DC.
--- NOTE | 2020-05-24 16:44 | NUR ---
05/24/20 6463 Faxed to [facility] order for Home O@ at 4l n/c cont to be delivered to the hospital and the home
--- NOTE | 2020-05-24 16:44 | NUR ---
Spoke with Phyllis manager of product at [facility] from the out source dept regarding the o2 for the patient and stated that they have the order and she will try and get it arranged, express to her that the patient can't leave until the o2 is delivered.
[2020-05-25 10:14] LABS: Hepatitis B Surface Antigen Negative (Negative)
[2020-05-25 10:31] LABS: Hepatitis A Ab IgM Negative
[2020-05-25 10:44] LABS: Hepatitis B Core IgM Negative
[2020-05-25 10:49] LABS: Hepatitis C Antibody Negative (Negative)
== END 2020-05-24 18:32 | disposition home or self-care (01) | DRG 177 ==
LOC: ER 03:46 → TELE 03:47 → TELE-EAST 15:22
PROVIDERS: ADMIT Internal Medicine; ATTEND Internal Medicine
DX: U07.1 COVID-19 (principal); J12.89 Other viral pneumonia; J96.01 Acute respiratory failure with hypoxia; E66.3 Overweight; D69.6 Thrombocytopenia, unspecified; R79.89 Other specified abnormal findings of blood chemistry; F41.9 Anxiety disorder, unspecified; Z82.49 Family history of ischemic heart disease and other diseases of the circulatory system; Z79.899 Other long term (current) drug therapy; Z68.26 Body mass index [BMI] 26.0-26.9, adult
CPT/HCPCS: 36415; 36600; 71045; 80053; 80061; 80074; 81001; 82306; 82728; 82805; 83036; 83615; 83735; 83880; 84484; 85025; 85379; 85610; 85652; 86141; 86850; 86900; 86901; 87040; 93005; 94640; 96365; 96366; 96367; 96375; 99291; G0378; J0696; J1100; J1956; J3490